=== PATIENT | female | born 1975 | race Caucasian/White ===

== ENCOUNTER 2018-03-25 14:03 | Emergency (ER) | payer MEDICARE | END 2018-03-25 16:36 | disposition home or self-care (01) | LOC: ERS 14:03 | DX: F41.9 Anxiety disorder, unspecified (principal); F11.23 Opioid dependence with withdrawal; J44.9 Chronic obstructive pulmonary disease, unspecified; F31.9 Bipolar disorder, unspecified; F20.9 Schizophrenia, unspecified; F17.210 Nicotine dependence, cigarettes, uncomplicated; Z79.899 Other long term (current) drug therapy; Z71.6 Tobacco abuse counseling | CPT/HCPCS: 99406 ==

== ENCOUNTER 2018-03-31 23:55 | Emergency (ER) | payer MEDICARE ==
--- NOTE | 2018-04-07 14:23 | EKG ---
Test Reason : Blood Pressure : / mmHG Vent. Rate : 096 BPM Atrial Rate : 096 BPM P-R Int : 182 ms QRS Dur : 080 ms QT Int : 360 ms P-R-T Axes : 083 082 076 degrees QTc Int : 454 ms Normal sinus rhythm Biatrial enlargement Abnormal ECG Confirmed by JIMBO MCMILLAN ([id number]), acquisitions editor ASIM ESCOBAR ([id number]) on 04/07/2018 2:22:34 PM Referred By: Confirmed By:JIMBO MCMILLAN
== END 2018-04-01 00:48 | disposition home or self-care (01) ==
LOC: ERS 23:55
DX: F41.9 Anxiety disorder, unspecified (principal); J44.9 Chronic obstructive pulmonary disease, unspecified; F31.9 Bipolar disorder, unspecified; F20.9 Schizophrenia, unspecified; F17.210 Nicotine dependence, cigarettes, uncomplicated; Z79.899 Other long term (current) drug therapy
CPT/HCPCS: 93005